=== PATIENT | female | born 1965 | race Two or more races ===

== ENCOUNTER 2025-08-25 12:45 | Inpatient (IN) | payer OTHER ==
[~2025-08-25] VITALS: Ht 142.2 cm; Wt 64.4 kg
[2025-08-26] MEDS ORDERED: ZESTRIL10 M1 PO (08:18)
[2025-09-02] MEDS ORDERED: CEFTRIAXONE SODIUM 2,000 MG VIAL ONE (12:41)
[2025-09-02] MEDS ORDERED: METRONIDAZOLE/SODIUM CHLORIDE 500 MG/100 ML PIGGYBACK IV ONE (12:42)
[2025-09-02] MEDS ORDERED: LIDOCAINE HCL 1%/EPINEPHRINE 20ML VIAL IJ ONE (14:20)
[2025-09-02] MEDS ORDERED: BUPIVACAINE HCL/MPF 0.5% 30ML VIAL ONE (14:20)
[2025-09-02] MEDS ORDERED: DEXAMETHASONE SODIUM PHOSPHATE 4 MG/ML VIAL ONE (14:54)
[2025-09-02] MEDS ORDERED: SUGAMMADEX SODIUM 200 MG/2 ML VIAL IV ONE ×2 (14:54→23:15)
[2025-09-02] MEDS ORDERED: ONDANSETRON HCL 2 MG/ML VIAL IV PRN (16:30)
[2025-09-02] MEDS ORDERED: MORPHINE SULFATE 4 MG/ML VIAL IV PRN (16:30)
[2025-09-02] MEDS ORDERED: OxyCODONE HCL 5 MG TABLET (ROXICODONE) PO PRN (16:30)
[2025-09-02] MEDS ORDERED: RINGERS SOLUTION,LACTATED 1,000 ML IV SCH (16:30)
[2025-09-02] MEDS ORDERED: DEXTROSE 50 % IN WATER 0.5 G/ML DISP.SYRIN IV PRN (16:30)
[2025-09-02] MEDS ORDERED: GABAPENTIN 300 MG CAPSULE PO SCH (17:00)
[2025-09-02 18:17] LABS: BASO % 0.3 % (0.1-1.2); EOS # 0.10 (0.04-0.54); EOS % 0.5 % (0.7-7.0); LYMPH # 2.75 (1.18-3.74); LYMPH % 13.2 % (19.3-53.1); MEAN PLATELET VOLUME 10.30 fl (9.4-12.4); MONO # 0.82 (0.24-0.82); MONO % 3.9 % (4.7-12.5); NEUT # 17.03 (1.56-6.13); NEUT % 81.6 % (34.0-71.1); RED CELL DISTRIBUTION WIDTH 13.6 % (11.6-14.4)
[2025-09-02 18:35] LABS: BUN CREA RATIO 22.0 (7.0-25.0); CREATININE SERUM 1.45 mg/dL (0.55-1.02); GFR 36.96; GLUCOSE FASTING 162.0 mg/dL (65-100); OSMOLALITY SERUM 294.0 MOSM/KG (275-295)
[2025-09-02] MEDS ORDERED: hydrALAZINE HCL 20 MG VIAL ONE (19:26)
[2025-09-02] MEDS ORDERED: ENALAPRILAT DIHYDRATE 1.25 MG/ML VIAL IV PRN (20:00)
[2025-09-02] MEDS ORDERED: ACETAMINOPHEN 500 MG GEL..CAP PO SCH (20:00)
[2025-09-02 21:00] VITALS: BP 144/73; O2SAT 95
[2025-09-02] MEDS ORDERED: LEVALBUTEROL HCL 0.63 MG/3 ML SOLUTION IH SCH (21:00)
[2025-09-02] MEDS ORDERED: FAMOTIDINE/PF 20 MG/2 ML VIAL IV PUSH SCH (21:00)
[2025-09-03] MEDS ORDERED: LEVALBUTEROL HCL 0.63 MG/3 ML SOLUTION IH SCH (01:00)
[2025-09-03 01:06] VITALS: BP 139/78; O2SAT 100
[2025-09-03 06:54] LABS: BASO % 0.3 % (0.1-1.2); EOS # 0.01 (0.04-0.54); EOS % 0.1 % (0.7-7.0); LYMPH # 1.61 (1.18-3.74); LYMPH % 10.7 % (19.3-53.1); MEAN PLATELET VOLUME 10.70 fl (9.4-12.4); MONO # 0.95 (0.24-0.82); MONO % 6.3 % (4.7-12.5); NEUT # 12.35 (1.56-6.13); NEUT % 82.1 % (34.0-71.1); RED CELL DISTRIBUTION WIDTH 13.5 % (11.6-14.4)
[2025-09-03 07:35] VITALS: BP 147/77; O2SAT 99
[2025-09-03 07:36] LABS: BUN CREA RATIO 23.0 (7.0-25.0); CREATININE SERUM 1.04 mg/dL (0.55-1.02); GFR 54.24; GLUCOSE FASTING 115.0 mg/dL (65-100); OSMOLALITY SERUM 290.0 MOSM/KG (275-295)
[2025-09-03] MEDS ORDERED: LISINOPRIL 10 MG TABLET PO SCH (09:00)
[2025-09-03 15:25] VITALS: BP 134/75; O2SAT 95
[2025-09-03] MEDS ORDERED: ENOXAPARIN SODIUM 40 MG/0.4 ML SYRINGE SUBCUTANEO SCH (17:00)
[2025-09-04 01:04] VITALS: BP 141/75; O2SAT 100
[2025-09-04 07:06] LABS: BASO % 0.4 % (0.1-1.2); EOS # 0.08 (0.04-0.54); EOS % 0.6 % (0.7-7.0); LYMPH # 1.94 (1.18-3.74); LYMPH % 14.4 % (19.3-53.1); MEAN PLATELET VOLUME 10.60 fl (9.4-12.4); MONO # 0.72 (0.24-0.82); MONO % 5.3 % (4.7-12.5); NEUT # 10.61 (1.56-6.13); NEUT % 78.9 % (34.0-71.1); RED CELL DISTRIBUTION WIDTH 13.5 % (11.6-14.4)
[2025-09-04 07:28] LABS: BUN CREA RATIO 14.0 (7.0-25.0); CREATININE SERUM 0.8 mg/dL (0.55-1.02); GFR 73.41; GLUCOSE FASTING 106.0 mg/dL (65-100); OSMOLALITY SERUM 287.0 MOSM/KG (275-295)
[2025-09-04 08:00] VITALS: BP 157/72; O2SAT 98
[2025-09-04] MEDS ORDERED: ENOXAPARIN SODIUM 40 MG/0.4 ML SYRINGE SUBCUTANEO SCH (09:00)
[2025-09-04] MEDS ORDERED: GABAPENTIN300 MG PO (10:50)
[2025-09-04] MEDS ORDERED: PAIN RELIEVER500 M2 PO (10:50)
[2025-09-04] MEDS ORDERED: MAGNESIUM CHLORIDE 70 MG TABLET.DR PO STA (11:04)
[2025-09-04 16:00] VITALS: BP 120/67; O2SAT 98
== END 2025-09-04 19:24 | disposition home or self-care (01) | DRG 330 ==
LOC: SURH 09-02 10:00 → O/R 09-02 11:00 → SURH 09-02 12:45 → SURG 09-02 18:32
PROVIDERS: Internal Medicine Geriatric Medicine; ADMIT Surgery; ATTEND Surgery
PROC: 0DBP4ZZ Excision of Rectum, Percutaneous Endoscopic Approach (ICD-10-PCS; 2025-09-02)
PROC: 07BC4ZZ Excision of Pelvis Lymphatic, Percutaneous Endoscopic Approach (ICD-10-PCS; 2025-09-02)
PROC: 0DJD8ZZ Inspection of Lower Intestinal Tract, Via Natural or Artificial Opening Endoscopic (ICD-10-PCS; 2025-09-02)
PROC: 3E0F7GC Introduction of Other Therapeutic Substance into Respiratory Tract, Via Natural or Artificial Opening (ICD-10-PCS; 2025-09-02)
PROC: 0DTN4ZZ Resection of Sigmoid Colon, Percutaneous Endoscopic Approach (ICD-10-PCS; principal; 2025-09-02 10:00)
DX: C18.7 Malignant neoplasm of sigmoid colon (principal); K92.1 Melena; D12.5 Benign neoplasm of sigmoid colon; R59.0 Localized enlarged lymph nodes; K59.09 Other constipation; I10 Essential (primary) hypertension; J45.20 Mild intermittent asthma, uncomplicated

== ENCOUNTER → 2025-09-01 10:10 | Outpatient (CLI) | payer OTHER ==
[~2025-09-01 10:10] MED LIST: ZESTRIL10 M1 PO
[2025-09-01 11:57] LABS: T4 TOTAL 12.43 UG/DL (4.8-13.9); TSH 1.08 uIU/mL (0.358-3.74)
== END | disposition home or self-care (01) ==
LOC: LAB 10:10
PROVIDERS: ATTEND Internal Medicine Geriatric Medicine
DX: E03.9 Hypothyroidism, unspecified (principal); E05.90 Thyrotoxicosis, unspecified without thyrotoxic crisis or storm

== ENCOUNTER 2025-09-01 10:55 | Outpatient (CLI) | payer OTHER | END 2025-09-01 10:56 | disposition home or self-care (01) | LOC: NUCLEAR 10:55 | PROVIDERS: ATTEND Internal Medicine Geriatric Medicine | DX: I11.9 Hypertensive heart disease without heart failure (principal); R00.0 Tachycardia, unspecified ==